=== PATIENT | male | born 1960 | race African-American/Black ===

== ENCOUNTER 2017-03-05 06:26 | Day surgery (SDC) | payer OTHER ==
--- NOTE | 2017-02-26 13:51 | HP ---
DATE OF ADMISSION: DATE OF DICTATION: 01/30/2017 REASON FOR ADMISSION: Right inguinal hernia. BRIEF HISTORY: This is a 56-year-old gentleman who over the past years had a lump in his right groin. Over this time course, the patient states the lump has gotten fairly large and now he has more discomfort in the area. He states the discomfort is exacerbated when he eats large meals. He also feels the lump gets bigger at that time as well. He has no pain with prolonged standing or lifting or bending activities at this time. He has had no nausea, no vomiting, no change in bowel habits. PAST MEDICAL HISTORY: Patient denies coronary disease, hypertension, or diabetes. The patient has a history of arthritic changes and syphilis. PAST SURGICAL HISTORY: He has had arthroscopy of both knees, and surgical management for a crushed left index finger. ALLERGIES: SHELLFISH. SOCIAL HISTORY: Patient smokes one-half pack of cigarettes per day, drinks daily (approximately 4 beers). MEDICATIONS: None. PHYSICAL EXAMINATION: Lungs: Clear. Heart: Regular rhythm. Abdomen: Soft, nontender, nondistended. He has a large right inguinal hernia, which is reducible in the supine position. The right scrotum and testicle is within normal limits. No obvious hernia in the left groin. Some laxity noted. Left scrotum and testicle is within normal limits. IMPRESSION/PLAN: Right groin pain, right inguinal hernia, attenuated left inguinal floor: This is a 56-year-old gentleman who has become more symptomatic over the past year from an enlarging right inguinal hernia. Since it has gotten larger and he is symptomatic, I would recommend we proceed at this time with a repair. We have discussed the various approaches. Patient will be scheduled for a bilateral laparoscopic inguinal repair. At the time of laparoscopy, the left side will be examined due to the laxity, and if a defect is noted, it will be repaired at the same setting. If no defect is noted, a piece of mesh will be left in the direct inguinal space for reinforcement. Due to the generosity and size of the right inguinal hernia, the patient is more likely to develop a postoperative seroma, which may or may not resolve with time. This was explained to the patient. He understands and wants to proceed. JENAE RAZO M.D. [id number] cc: Aidee Mesa MD, [address] [place] [id number],
[2017-03-04 10:11] VITALS: BMI 23.0
[2017-03-05] MEDS ORDERED: TAMSULOSIN HCL 0.4 MG CAP.ER.24H (FP) ONE (07:03)
[2017-03-05] MEDS ORDERED: ceFAZolin SODIUM 1 GM VIAL ONE ×2 (07:03→08:16)
[2017-03-05] MEDS ORDERED: ROCURONIUM BROMIDE 50 MG/5 ML VIAL ONE (07:47)
[2017-03-05] MEDS ORDERED: MIDAZOLAM HCL 2 MG/2 ML SINGLE DOSE VIAL ONE (07:47)
[2017-03-05] MEDS ORDERED: PROPOFOL 20 ML ONE ×2 (07:47)
[2017-03-05] MEDS ORDERED: DEXAMETHASONE SOD PHOSPHATE 4 MG/1 ML VIAL ONE (08:16)
[2017-03-05] MEDS ORDERED: ONDANSETRON 4 MG/2 ML VIAL ONE ×2 (08:16→08:50)
[2017-03-05] MEDS ORDERED: GLYCOPYRROLATE 0.2 MG/1 ML VIAL ONE (08:48)
[2017-03-05] MEDS ORDERED: NEOSTIGMINE METHYLSULFATE 0.5 MG/ML - 10 ML MDV ONE (08:48)
[2017-03-05] MEDS ORDERED: KETOROLAC TROMETHAMINE 30 MG/1 ML VIAL ONE (08:50)
[2017-03-05] MEDS ORDERED: oxyCODONE HCL 5 MG TABLET PO PRN (09:28)
[2017-03-05] MEDS ORDERED: ONDANSETRON 4 MG/2 ML VIAL IVPUSH PRN (09:28)
[2017-03-05] MEDS ORDERED: LACTATED RINGERS SOLUTION 1,000 ML IV SCH (09:30)
[2017-03-05 14:39] VITALS: BP 122/67; PULSE 59; TEMP 97.9
--- NOTE | 2017-03-06 11:53 | OP ---
LUNA CARLSON [id number] DATE OF OPERATION: 03/05/2017 PREOPERATIVE DIAGNOSIS: Right inguinal hernia. POSTOPERATIVE DIAGNOSIS: Right incarcerated pantaloon inguinal hernia, left indirect inguinal hernia. PROCEDURE: Laparoscopic repair of incarcerated right inguinal hernia, laparoscopic repair of left inguinal hernia, all hernia repairs done with mesh. SURGEON: Brando Cresnhaw MD HAND CARVER: Germain Nina MD ANESTHESIA: Britta Chase MD ESTIMATED BLOOD LOSS: Minimal. SPECIMEN: None. DESCRIPTION OF PROCEDURE: This is a 56-year-old gentleman who had a lump in his right groin for many years. The lump has gotten larger. Now, he has got pain in the right groin. On physical examination, he has an obvious large right inguinal hernia and some laxity noted in the left groin. He is here for operative repair. Patient was identified and appropriately positioned on the operating room table. After placement of general anesthesia, the abdomen was prepped and draped in the usual sterile fashion with ChloraPrep. An infraumbilical incision was made deep into the subcutaneous tissues. The fascia of the rectus muscle on the right identified, divided sharply. The muscles split. Under direct vision, the dissector balloon followed by structural balloon was placed. Also, under direct vision, a suprapubic 11-mm port placed. The following structures on the right side identified, pubic tubercle, Coopers ligament, inferior epigastric vessels, spermatic cord, and lateral abdominal wall. During this dissection, he had a direct inguinal hernia containing fat that was incarcerated. This direct component was reduced back into the preperitoneal space with blunt dissection. He had a moderate-sized indirect inguinal hernia. The sac reduced back into the preperitoneal space with blunt dissection. A 4.5 x 6 piece of Versatex mesh was keyhole placed through the suprapubic port site. The mesh wrapped around the cord structures laterally to reconstruct the internal ring. Laterally, the mesh anchored to the anterior abdominal wall and lateral abdominal wall. Medially, the mesh anchored to the anterior abdominal wall, pubic tubercle, and Coopers ligament. The mesh covered the direct space. Upon completion of the right side, similar structures on the left side identified. On the left side, the patient had similar structures identified, and in doing so, he had no direct component. He had an indirect sac with a small cord lipoma, both reduced back in the preperitoneal space. Another 4.5 x 6 piece of Versatex mesh was keyhole placed through the suprapubic port site. The mesh wrapped around the cord structures laterally to reconstruct the internal ring. Laterally, the mesh anchored to the anterior abdominal wall and lateral abdominal wall. Medially, the mesh was well overlapped in the midline, anchored to the anterior abdominal wall, pubic tubercle, and Coopers ligament. The preperitoneal space desufflated under direct vision. The operative field was examined, noted to be hemostatic. The fascia at both port sites were reapproximated with interrupted 0 Vicryl suture. All skin closed with 4-0 subcuticular Biosyn followed by Dermabond. At the conclusion of the case, sponge counts were correct. ATTESTATION: Brief operative note handwritten on the preprinted form. [facility] queried prior to giving any narcotics and will be done electronically. Stephan SUTTON [id number] cc: Dr. Aidee Alford
== END 2017-03-05 11:30 | disposition home or self-care (01) ==
LOC: JASU-SURG 06:26
PROVIDERS: ATTEND Surgery
PROC: 0YUA4JZ Supplement Bilateral Inguinal Region with Synthetic Substitute, Percutaneous Endoscopic Approach (ICD-10-PCS; principal; 2017-03-05 08:00)
DX: K40.30 Unilateral inguinal hernia, with obstruction, without gangrene, not specified as recurrent (principal); K40.90 Unilateral inguinal hernia, without obstruction or gangrene, not specified as recurrent
CPT/HCPCS: 94760

== ENCOUNTER 2024-01-14 10:21 | Inpatient (IN) | payer OTHER ==
[2024-01-14] MEDS ORDERED: PANTOPRAZOLE SODIUM 40 MG VIAL ONE (12:11)
[2024-01-14] MEDS ORDERED: ONDANSETRON 4 MG/2 ML VIAL ONE (12:11)
[2024-01-14] MEDS: LACTATED RINGERS SOLUTION 1,000 ML/1,000 ML INFUS.BAG IV SCH (12:17)
[2024-01-14] MEDS: ONDANSETRON 4 MG/2 ML VIAL IVPUSH ONE (12:17)
[2024-01-14] MEDS: PANTOPRAZOLE SODIUM 40 MG VIAL IVPUSH ONE (12:17)
[2024-01-14 13:55] LABS: BASO % 0.2 % (0-2.0); EOS % 0.1 % (0-4.5); HEMATOCRIT 31.4 % (35.4-49); HEMOGLOBIN 10.2 GM/dL (11.7-16.9); LYMPH % 7.7 % (8-40); MCHC 32.6 g/dl (32.0-35.9); MONO % 4.1 % (3.8-10.2); NEUT % 87.9 % (42.8-82.8); PLATELET COUNT 360 10^3/uL (134-434); RBC 3.65 M/mm3 (4.00-5.60); RDW 15.4 % (11.9-15.9); WHITE BLOOD COUNT 9.2 K/mm3 (4.0-10.0)
[2024-01-14 14:02] LABS: INR 1.03 (0.83-1.09); PROTHROMBIN TIME (PATIENT) 11.9 SEC (9.7-13.0)
[2024-01-14 14:05] LABS: ACTIVATED PTT 24.6 SECONDS (25.2-36.5)
[2024-01-14 14:19] LABS: CHLORIDE 98 mmol/L (98-107); POTASSIUM 3.3 mmol/L (3.5-5.1); SODIUM 136 mmol/L (136-145)
[2024-01-14 14:21] LABS: CALCIUM 8.8 mg/dL (8.5-10.1)
[2024-01-14 14:22] LABS: ALBUMIN 3.4 g/dl (3.4-5.0); ANION GAP 10 mmol/L (4-13); BLOOD UREA NITROGEN 82.5 mg/dL (7-18); CO2 28 mmol/L (21-32); GLUCOSE,RANDOM 98 mg/dL (74-106)
[2024-01-14 14:25] LABS: CREATININE 3.9 mg/dL (0.55-1.3); SGOT/AST 22 U/L (15-37); SGPT/ALT 30 U/L (13-61)
[2024-01-14 14:26] LABS: BILIRUBIN,TOTAL 0.5 mg/dL (0.2-1); TOT PROT 6.4 g/dl (6.4-8.2)
[2024-01-14 14:28] LABS: ALK PHOS 51 U/L (45-117)
[2024-01-14 16:22] LABS: BASO % 0.2 % (0-2.0); EOS % 0.2 % (0-4.5); LYMPH % 11.5 % (8-40); MCH 28.3 pg (25.7-33.7); MCHC 33.2 g/dl (32.0-35.9); MEAN CELL VOLUME 85.3 fl (80-96); MEAN PLT VOLUME 6.6 fl (7.5-11.1); MONO % 6.4 % (3.8-10.2); NEUT % 81.7 % (42.8-82.8); PLATELET COUNT 348 10^3/uL (134-434); RBC 3.88 M/mm3 (4.00-5.60); RDW 15.5 % (11.9-15.9); WHITE BLOOD COUNT 8.5 K/mm3 (4.0-10.0)
[2024-01-14] MEDS ORDERED: TRIMETHOBENZAMIDE HCL 200MG/2ML INJ IM PRN (16:46)
[2024-01-14] MEDS: SODIUM CHLORIDE 1,000 ML IV STA (17:34)
[2024-01-14 17:51] LABS: EPI CELLS 4 /uL (0-25.1); HYALINE CASTS 0 /uL (0-3.1); PH,URINE 5.5 (5.0-8.0); URINE APPEARANCE CLEAR; URINE BACTERIA 2 /uL (0-1359); URINE BILIRUBIN NEGATIVE (NEGATIVE); URINE COLOR YELLOW; URINE GLUCOSE (UA) NEGATIVE (NEGATIVE); URINE KETONE NEGATIVE (NEGATIVE); URINE LEUK ESTERASE NEGATIVE (NEGATIVE); URINE NITRITE NEGATIVE (NEGATIVE); URINE PROTEIN 1+ (NEGATIVE); URINE RBC 37 /uL (0-23.9); URINE UROBILINOGEN 0.2 mg/dL (0.2-1.0); URINE WBC 9 /uL (0-25.8)
[2024-01-14 18:23] LABS: MAGNESIUM 2.3 mg/dL (1.8-2.4)
[2024-01-14 18:26] LABS: CHOLESTEROL 242 mg/dL (50-200)
[2024-01-14 18:28] LABS: LDL CHOLESTEROL (ONLY SJRH) 143 mg/dL (5-100)
[2024-01-14 18:29] LABS: HDL CHOLESTEROL 73 mg/dL (40-60)
[2024-01-14] MEDS: PANTOPRAZOLE SODIUM 40 MG VIAL IVPUSH SCH (23:13)
[2024-01-15] MEDS ORDERED: OCTREOTIDE ACETATE 50 MCG/1 ML - 1 ML VIAL IVPUSH ONE (08:06)
[2024-01-15] MEDS ORDERED: OCTREOTIDE ACETATE 200 MCG, OCTREOTIDE ACETATE 1,000 MCG in DEXTROSE 5%-WATER - 496 ML IVPB SCH (08:15)
[2024-01-15 08:27] LABS: BASO % 1.1 % (0-2.0); EOS % 0.6 % (0-4.5); HEMATOCRIT 32.1 % (35.4-49); LYMPH % 25.2 % (8-40); MCH 28.9 pg (25.7-33.7); MCHC 34.1 g/dl (32.0-35.9); MEAN CELL VOLUME 84.6 fl (80-96); MEAN PLT VOLUME 6.8 fl (7.5-11.1); MONO % 5.9 % (3.8-10.2); NEUT % 67.2 % (42.8-82.8); PLATELET COUNT 386 10^3/uL (134-434); RDW 15.6 % (11.9-15.9); WHITE BLOOD COUNT 4.2 K/mm3 (4.0-10.0)
[2024-01-15 08:28] LABS: POTASSIUM 3.7 mmol/L (3.5-5.1)
[2024-01-15 08:38] LABS: ALBUMIN 3.5 g/dl (3.4-5.0); BLOOD UREA NITROGEN 66.2 mg/dL (7-18); CALCIUM 9.4 mg/dL (8.5-10.1); MAGNESIUM 2.4 mg/dL (1.8-2.4)
[2024-01-15 08:41] LABS: CREATININE 3.3 mg/dL (0.55-1.3); PHOSPHOROUS 3.6 mg/dL (2.5-4.9)
[2024-01-15 08:43] LABS: TOT PROT 6.8 g/dl (6.4-8.2)
[2024-01-15 09:04] LABS: INR 1.03 (0.83-1.09)
[2024-01-15 09:07] LABS: ACTIVATED PTT 25.8 SECONDS (25.2-36.5)
[2024-01-15 11:33] LABS: SYPHILIS W/ RPR CONF NON-REACTIVE (NONREACTIVE)
[2024-01-15 12:01] LABS: HIV INTERPRETATION NEGATIVE (NEGATIVE)
[2024-01-15] MEDS: THIAMINE HCL 200 MG/2 ML VIAL IVPB SCH (12:15)
[2024-01-16] MEDS: LACTATED RINGERS SOLUTION 1,000 ML/1,000 ML INFUS.BAG IV SCH (08:44)
[2024-01-16 10:02] LABS: HEMATOCRIT 35.2 % (35.4-49); HEMOGLOBIN 11.9 GM/dL (11.7-16.9); MCH 28.6 pg (25.7-33.7); MCHC 33.8 g/dl (32.0-35.9); MEAN CELL VOLUME 84.7 fl (80-96); PLATELET COUNT 439 10^3/uL (134-434); RBC 4.16 M/mm3 (4.00-5.60); RDW 15.2 % (11.9-15.9); WHITE BLOOD COUNT 5.4 K/mm3 (4.0-10.0)
[2024-01-16 10:19] LABS: POTASSIUM 3.7 mmol/L (3.5-5.1)
[2024-01-16 10:23] LABS: BLOOD UREA NITROGEN 47.7 mg/dL (7-18)
[2024-01-16 10:24] LABS: CALCIUM 9.9 mg/dL (8.5-10.1)
[2024-01-16 10:25] LABS: ALBUMIN 3.5 g/dl (3.4-5.0); MAGNESIUM 2.2 mg/dL (1.8-2.4)
[2024-01-16 10:27] LABS: CREATININE 2.8 mg/dL (0.55-1.3); PHOSPHOROUS 3.1 mg/dL (2.5-4.9)
[2024-01-16 10:28] LABS: BILIRUBIN,TOTAL 0.7 mg/dL (0.2-1); TOT PROT 7.2 g/dl (6.4-8.2)
[2024-01-16] MEDS ORDERED: DRONABINOL 2.5 MG CAPSULE PO SCH (13:00)
[2024-01-16] MEDS: DRONABINOL 2.5 MG CAPSULE PO ONE (13:50)
[2024-01-16] MEDS: PANTOPRAZOLE 40 MG TABLET PO SCH (21:41)
[2024-01-17] MEDS ORDERED: ONDANSETRON 4 MG/2 ML VIAL IVPUSH PRN (09:16)
[2024-01-17 09:37] LABS: HEMATOCRIT 32.6 % (35.4-49); HEMOGLOBIN 10.6 GM/dL (11.7-16.9); MCHC 32.5 g/dl (32.0-35.9); MEAN CELL VOLUME 86.3 fl (80-96); MEAN PLT VOLUME 6.8 fl (7.5-11.1); PLATELET COUNT 402 10^3/uL (134-434); RBC 3.78 M/mm3 (4.00-5.60); RDW 15.5 % (11.9-15.9); WHITE BLOOD COUNT 6.3 K/mm3 (4.0-10.0)
[2024-01-17] MEDS: LACTATED RINGERS SOLUTION 1,000 ML/1,000 ML INFUS.BAG IV SCH (09:53)
[2024-01-17] MEDS: PANTOPRAZOLE SODIUM 40 MG VIAL IVPUSH SCH (09:54)
[2024-01-17] MEDS: TAMSULOSIN HCL 0.4 MG CAP PO SCH (09:55)
[2024-01-17] MEDS: THIAMINE 100 MG TABLET PO SCH (09:55)
[2024-01-17 09:58] LABS: POTASSIUM 3.4 mmol/L (3.5-5.1)
[2024-01-17] MEDS ORDERED: DRONABINOL 2.5 MG CAPSULE PO SCH (10:00)
[2024-01-17 10:04] LABS: ALBUMIN 3.2 g/dl (3.4-5.0); CALCIUM 9.2 mg/dL (8.5-10.1); MAGNESIUM 1.9 mg/dL (1.8-2.4)
[2024-01-17 10:06] LABS: BLOOD UREA NITROGEN 40.1 mg/dL (7-18); CREATININE 2.7 mg/dL (0.55-1.3)
[2024-01-17 10:08] LABS: PHOSPHOROUS 2.6 mg/dL (2.5-4.9)
[2024-01-17 10:09] LABS: BILIRUBIN,TOTAL 0.5 mg/dL (0.2-1); TOT PROT 6.4 g/dl (6.4-8.2)
[2024-01-17] MEDS ORDERED: PANTOPRAZOLE 40 MG TABLET PO SCH ×2 (13:38→22:00)
[2024-01-18 08:09] LABS: CARCINOEMBRYONIC ANTIGEN 6.2 ng/mL (0.0-4.7)
[2024-01-18 09:08] LABS: HEMATOCRIT 29.3 % (35.4-49); HEMOGLOBIN 9.8 GM/dL (11.7-16.9); MCH 28.4 pg (25.7-33.7); MCHC 33.5 g/dl (32.0-35.9); MEAN CELL VOLUME 84.7 fl (80-96); MEAN PLT VOLUME 6.5 fl (7.5-11.1); PLATELET COUNT 400 10^3/uL (134-434); RBC 3.45 M/mm3 (4.00-5.60); RDW 15.5 % (11.9-15.9); WHITE BLOOD COUNT 4.3 K/mm3 (4.0-10.0)
[2024-01-18 09:31] LABS: POTASSIUM 3.6 mmol/L (3.5-5.1)
[2024-01-18 09:33] LABS: CALCIUM 8.5 mg/dL (8.5-10.1)
[2024-01-18 09:34] LABS: BLOOD UREA NITROGEN 32.7 mg/dL (7-18); MAGNESIUM 1.7 mg/dL (1.8-2.4)
[2024-01-18 09:36] LABS: CREATININE 2.5 mg/dL (0.55-1.3); PHOSPHOROUS 2.6 mg/dL (2.5-4.9)
[2024-01-18 09:38] LABS: BILIRUBIN,TOTAL 0.8 mg/dL (0.2-1); TOT PROT 6.1 g/dl (6.4-8.2)
[2024-01-18] MEDS: TAMSULOSIN HCL 0.4 MG CAP PO SCH (09:56)
[2024-01-18] MEDS: BISACODYL 5 MG TABLET.DR (FP) PO ONE (15:11)
[2024-01-19 07:18] LABS: POTASSIUM 3.5 mmol/L (3.5-5.1)
[2024-01-19 07:22] LABS: BLOOD UREA NITROGEN 27.6 mg/dL (7-18); CALCIUM 8.8 mg/dL (8.5-10.1)
[2024-01-19 07:25] LABS: CREATININE 2.3 mg/dL (0.55-1.3)
[2024-01-20 08:19] LABS: HEMATOCRIT 30.5 % (35.4-49); HEMOGLOBIN 10.4 GM/dL (11.7-16.9); MCH 28.8 pg (25.7-33.7); MCHC 34.1 g/dl (32.0-35.9); MEAN CELL VOLUME 84.4 fl (80-96); MEAN PLT VOLUME 6.6 fl (7.5-11.1); PLATELET COUNT 451 10^3/uL (134-434); RBC 3.62 M/mm3 (4.00-5.60); RDW 15.8 % (11.9-15.9); WHITE BLOOD COUNT 4.9 K/mm3 (4.0-10.0)
[2024-01-20 08:37] LABS: POTASSIUM 3.9 mmol/L (3.5-5.1)
[2024-01-20 08:45] LABS: CALCIUM 9.2 mg/dL (8.5-10.1)
[2024-01-20 08:46] LABS: ALBUMIN 3.1 g/dl (3.4-5.0); BLOOD UREA NITROGEN 26.9 mg/dL (7-18); MAGNESIUM 1.9 mg/dL (1.8-2.4)
[2024-01-20 08:47] LABS: BILIRUBIN,TOTAL 0.5 mg/dL (0.2-1); TOT PROT 6.2 g/dl (6.4-8.2)
[2024-01-20 08:48] LABS: PHOSPHOROUS 2.9 mg/dL (2.5-4.9)
[2024-01-20 08:49] LABS: CREATININE 2.3 mg/dL (0.55-1.3)
[2024-01-20 11:47] VITALS: RESP 18
[2024-01-20] MEDS: LACTATED RINGERS SOLUTION 1,000 ML/1,000 ML INFUS.BAG IV SCH (12:24)
[2024-01-20] MEDS: PANTOPRAZOLE 40 MG TABLET PO SCH (18:13)
[2024-01-21 12:07] LABS: POTASSIUM 3.9 mmol/L (3.5-5.1)
[2024-01-21 12:10] LABS: CALCIUM 8.9 mg/dL (8.5-10.1)
[2024-01-21 12:11] LABS: BLOOD UREA NITROGEN 25.3 mg/dL (7-18)
[2024-01-21 23:52] VITALS: BMI 15.0
[2024-01-22 08:38] LABS: POTASSIUM 4.1 mmol/L (3.5-5.1)
[2024-01-22 08:46] LABS: CALCIUM 9.5 mg/dL (8.5-10.1)
[2024-01-22 08:47] LABS: BLOOD UREA NITROGEN 26.1 mg/dL (7-18)
[2024-01-23 09:00] VITALS: BP 128/95; PULSE 83; TEMP 98.8
== END 2024-01-23 12:10 | disposition home or self-care (01) | DRG 368 ==
LOC: JER 10:21 → INTOOBSV 15:04 → UNDOADMOB 15:04 → JERBED 15:04 → J6S 20:41 → OBSVTOIN 01-16 10:01
PROVIDERS: ADMIT Internal Medicine; ATTEND Internal Medicine
PROC: 0DB68ZX Excision of Stomach, Via Natural or Artificial Opening Endoscopic, Diagnostic (ICD-10-PCS; 2024-01-16)
PROC: 0DB58ZX Excision of Esophagus, Via Natural or Artificial Opening Endoscopic, Diagnostic (ICD-10-PCS; principal; 2024-01-16 09:30)
DX: K20.91 Esophagitis, unspecified with bleeding (principal); K29.71 Gastritis, unspecified, with bleeding; D62 Acute posthemorrhagic anemia; E46 Unspecified protein-calorie malnutrition; Z68.1 Body mass index [BMI] 19.9 or less, adult; N17.9 Acute kidney failure, unspecified; R64 Cachexia; F17.210 Nicotine dependence, cigarettes, uncomplicated; E87.6 Hypokalemia; R62.7 Adult failure to thrive; K76.9 Liver disease, unspecified; K44.9 Diaphragmatic hernia without obstruction or gangrene; F10.10 Alcohol abuse, uncomplicated; F14.10 Cocaine abuse, uncomplicated; N40.0 Benign prostatic hyperplasia without lower urinary tract symptoms; R31.29 Other microscopic hematuria; N18.9 Chronic kidney disease, unspecified
CPT/HCPCS: 0241U-QW; 36415; 71045-TC-FY; 71046-TC-FY; 71250-TC; 74176-TC; 74181-TC; 76775-TC; 76856-TC; 80048; 80053; 80061; 80307; 81003; 82105; 82272; 82378; 82728; 82746; 83540; 83550; 83605; 83690; 83735; 84100; 84300; 84443; 84484; 85025; 85027; 85610; 85730; 86301; 86480; 86704; 86708; 86780; 86803; 86850; 86900; 86901; 87086; 87340; 87389; 87517; 88305-TC; 99285-25; G0378

== ENCOUNTER 2024-03-06 06:11 | Emergency (ER) | payer OTHER ==
[2024-03-06 06:22] VITALS: TEMP 97.5; BMI 17.4
[2024-03-06] MEDS ORDERED: ACETAMINOPHEN INJECTION 100 ML IVPB ONE (07:58)
[2024-03-06] MEDS ORDERED: MAG HYDROX/AL HYDROX/SIMETH 30 ML UNIT-DOSE CUP ONE (07:58)
[2024-03-06] MEDS ORDERED: ONDANSETRON 4 MG/2 ML VIAL ONE (07:59)
[2024-03-06] MEDS: LACTATED RINGERS SOLUTION 1000 ML INFUS.BAG IV ONE (08:00)
[2024-03-06] MEDS: ACETAMINOPHEN 1000 MG/100 ML BAG IVPB ONE (08:01)
[2024-03-06] MEDS: FAMOTIDINE 20 MG/50 ML IVPB 20 MG/50 ML MG IVPB ONE (08:01)
[2024-03-06] MEDS: ONDANSETRON 4 MG/2 ML VIAL IVPUSH ONE (08:01)
[2024-03-06] MEDS: MAG HYDROX/AL HYDROX/SIMETH 30 ML UNIT-DOSE CUP PO ONE (08:01)
[2024-03-06] MEDS ORDERED: FAMOTIDINE 20 MG/50 ML IVPB 20 MG/50 ML MG IVPB ONE (08:02)
[2024-03-06 08:05] LABS: BASO % 1.1 % (0-2.0); EOS % 0.3 % (0-4.5); HEMATOCRIT 37.6 % (35.4-49); HEMOGLOBIN 12.7 GM/dL (11.7-16.9); LYMPH % 14.5 % (8-40); MCHC 33.7 g/dl (32.0-35.9); MEAN PLT VOLUME 6.3 fl (7.5-11.1); MONO % 3.5 % (3.8-10.2); NEUT % 80.6 % (42.8-82.8); PLATELET COUNT 537 10^3/uL (134-434); RBC 4.37 M/mm3 (4.00-5.60); RDW 17.2 % (11.9-15.9); WHITE BLOOD COUNT 6.6 K/mm3 (4.0-10.0)
[2024-03-06 08:13] LABS: INR 0.93 (0.83-1.09); PROTHROMBIN TIME (PATIENT) 10.7 SEC (9.7-13.0)
[2024-03-06 08:16] LABS: ACTIVATED PTT 32.8 SECONDS (25.2-36.5)
[2024-03-06 08:21] LABS: POTASSIUM 4.8 mmol/L (3.5-5.1)
[2024-03-06 08:23] LABS: CALCIUM 9.6 mg/dL (8.5-10.1)
[2024-03-06 08:24] LABS: ALBUMIN 3.9 g/dl (3.4-5.0); BLOOD UREA NITROGEN 23.5 mg/dL (7-18); MAGNESIUM 2.4 mg/dL (1.8-2.4)
[2024-03-06 08:26] LABS: CREATININE 2.2 mg/dL (0.55-1.3)
[2024-03-06 08:28] LABS: BILIRUBIN,TOTAL 0.5 mg/dL (0.2-1); TOT PROT 7.8 g/dl (6.4-8.2)
[2024-03-06 11:07] VITALS: BP 147/88; PULSE 69; RESP 20
== END 2024-03-06 12:15 | disposition home or self-care (01) ==
LOC: JER 06:11
PROC: 3E033GC Introduction of Other Therapeutic Substance into Peripheral Vein, Percutaneous Approach (ICD-10-PCS; principal; 2024-03-06)
PROC: 3E033GC Introduction of Other Therapeutic Substance into Peripheral Vein, Percutaneous Approach (ICD-10-PCS; 2024-03-06)
PROC: 3E033NZ Introduction of Analgesics, Hypnotics, Sedatives into Peripheral Vein, Percutaneous Approach (ICD-10-PCS; 2024-03-06)
DX: R11.2 Nausea with vomiting, unspecified (principal); R10.11 Right upper quadrant pain; R06.2 Wheezing; Z20.822 Contact with and (suspected) exposure to COVID-19
CPT/HCPCS: 0241U-QW; 36415; 71045-TC-FY; 76705-TC; 80053; 80307; 82550; 82553; 83690; 83735; 84484; 85025; 85610; 85730; 93005; 93010; 99285-25; J0131

== ENCOUNTER 2024-03-08 21:49 | Inpatient (IN) | payer OTHER ==
[2024-03-08] MEDS ORDERED: TRIMETHOBENZAMIDE HCL 200MG/2ML INJ IM ONE (23:03)
[2024-03-08] MEDS ORDERED: ACETAMINOPHEN INJECTION 100 ML IVPB ONE (23:03)
[2024-03-08] MEDS ORDERED: FAMOTIDINE 20 MG/50 ML IVPB 20 MG/50 ML MG IVPB ONE (23:04)
[2024-03-08] MEDS: TRIMETHOBENZAMIDE HCL 200MG/2ML INJ IM ONE (23:25)
[2024-03-08] MEDS: SODIUM CHLORIDE 1,000 ML IV STA (23:25)
[2024-03-08] MEDS: ACETAMINOPHEN 1000 MG/100 ML BAG IVPB ONE (23:25)
[2024-03-08] MEDS: FAMOTIDINE 20 MG/50 ML IVPB 20 MG/50 ML MG IVPB ONE (23:25)
[2024-03-08 23:29] LABS: BASO % 0.3 % (0-2.0); HEMATOCRIT 37.8 % (35.4-49); HEMOGLOBIN 12.6 GM/dL (11.7-16.9); LYMPH % 6.8 % (8-40); MCH 28.1 pg (25.7-33.7); MCHC 33.3 g/dl (32.0-35.9); MEAN CELL VOLUME 84.3 fl (80-96); MEAN PLT VOLUME 6.2 fl (7.5-11.1); MONO % 2.6 % (3.8-10.2); NEUT % 90.3 % (42.8-82.8); PLATELET COUNT 458 10^3/uL (134-434); RBC 4.49 M/mm3 (4.00-5.60); RDW 16.7 % (11.9-15.9)
[2024-03-08] MEDS: FAMOTIDINE 20 MG TABLET PO ONE (23:58)
[2024-03-09 00:01] LABS: POTASSIUM 4.6 mmol/L (3.5-5.1)
[2024-03-09 00:03] LABS: CALCIUM 9.6 mg/dL (8.5-10.1)
[2024-03-09 00:04] LABS: BLOOD UREA NITROGEN 26.8 mg/dL (7-18); MAGNESIUM 2.4 mg/dL (1.8-2.4)
[2024-03-09 00:07] LABS: CREATININE 2.8 mg/dL (0.55-1.3)
[2024-03-09 00:08] LABS: BILIRUBIN,TOTAL 0.9 mg/dL (0.2-1); TOT PROT 8.1 g/dl (6.4-8.2)
[2024-03-09] MEDS ORDERED: ONDANSETRON 4 MG/2 ML VIAL IVPUSH PRN (04:52)
[2024-03-09] MEDS ORDERED: ACETAMINOPHEN 1000 MG/100 ML BAG IVPB PRN ×3 (04:53→08:04)
[2024-03-09] MEDS: LACTATED RINGERS SOLUTION 1,000 ML/1,000 ML INFUS.BAG IV SCH (06:07)
[2024-03-09 08:18] LABS: HEMATOCRIT 36.2 % (35.4-49); HEMOGLOBIN 12.1 GM/dL (11.7-16.9); MCH 28.2 pg (25.7-33.7); MCHC 33.3 g/dl (32.0-35.9); MEAN CELL VOLUME 84.6 fl (80-96); MEAN PLT VOLUME 6.4 fl (7.5-11.1); PLATELET COUNT 458 10^3/uL (134-434); RBC 4.28 M/mm3 (4.00-5.60); RDW 17.1 % (11.9-15.9); WHITE BLOOD COUNT 6.8 K/mm3 (4.0-10.0)
[2024-03-09 08:23] LABS: POTASSIUM 4.9 mmol/L (3.5-5.1)
[2024-03-09 08:26] LABS: BLOOD UREA NITROGEN 28.8 mg/dL (7-18); CALCIUM 9.2 mg/dL (8.5-10.1)
[2024-03-09 08:27] LABS: ALBUMIN 3.6 g/dl (3.4-5.0); MAGNESIUM 2.3 mg/dL (1.8-2.4)
[2024-03-09 08:29] LABS: CREATININE 2.6 mg/dL (0.55-1.3); PHOSPHOROUS 4.6 mg/dL (2.5-4.9)
[2024-03-09 08:31] LABS: BILIRUBIN,TOTAL 0.8 mg/dL (0.2-1); TOT PROT 7.2 g/dl (6.4-8.2)
[2024-03-09] MEDS: PANTOPRAZOLE SODIUM 40 MG VIAL IVPUSH SCH (09:43)
[2024-03-09] MEDS: NICOTINE 14 MG/24 HOURS TOPICAL PATCH TD SCH (09:44)
[2024-03-09] MEDS ORDERED: ENOXAPARIN NA (PORCINE) 40 MG/0.4 ML DISP.SYRIN SQ SCH (10:00)
[2024-03-09] MEDS: DEXTROSE 5%-0.45% SALINE 1,000 ML IV SCH (19:43)
[2024-03-09] MEDS: TAMSULOSIN HCL 0.4 MG CAP PO SCH (21:51)
[2024-03-10 08:57] LABS: BASO % 0.8 % (0-2.0); EOS % 0.3 % (0-4.5); HEMOGLOBIN 10.7 GM/dL (11.7-16.9); LYMPH % 17.8 % (8-40); MCH 28.2 pg (25.7-33.7); MCHC 32.6 g/dl (32.0-35.9); MEAN CELL VOLUME 86.5 fl (80-96); MEAN PLT VOLUME 6.6 fl (7.5-11.1); MONO % 5.6 % (3.8-10.2); NEUT % 75.5 % (42.8-82.8); PLATELET COUNT 391 10^3/uL (134-434); RBC 3.82 M/mm3 (4.00-5.60); RDW 16.7 % (11.9-15.9); WHITE BLOOD COUNT 5.2 K/mm3 (4.0-10.0)
[2024-03-10 09:04] LABS: INR 0.94 (0.83-1.09); PROTHROMBIN TIME (PATIENT) 10.8 SEC (9.7-13.0)
[2024-03-10 09:19] LABS: POTASSIUM 4.5 mmol/L (3.5-5.1)
[2024-03-10 09:21] LABS: CALCIUM 9.2 mg/dL (8.5-10.1)
[2024-03-10 09:22] LABS: ALBUMIN 3.4 g/dl (3.4-5.0); BLOOD UREA NITROGEN 35.6 mg/dL (7-18)
[2024-03-10 09:25] LABS: CREATININE 2.5 mg/dL (0.55-1.3)
[2024-03-10 09:27] LABS: BILIRUBIN,TOTAL 0.5 mg/dL (0.2-1); TOT PROT 6.6 g/dl (6.4-8.2)
[2024-03-10] MEDS ORDERED: METOCLOPRAMIDE HCL INJECTION 10 MG/2 ML VIAL IVPUSH SCH (11:00)
[2024-03-10] MEDS: PEG 3350/NA SULF BICARB CL/KCL 4000 ML SOLN.RECON PO ONE (12:24)
[2024-03-10] MEDS: METOCLOPRAMIDE HCL INJECTION 10 MG/2 ML VIAL IVPUSH SCH (12:25)
[2024-03-10] MEDS ORDERED: METOCLOPRAMIDE HCL 10 MG TABLET (FP) PO PRN (13:12)
[2024-03-10] MEDS ORDERED: ACETAMINOPHEN 325 MG TABLET (FP) PO PRN (13:19)
[2024-03-10] MEDS: AMINO ACIDS 4.25%/D5W 1,000 ML IV SCH (14:49)
[2024-03-10] MEDS ORDERED: PEG 3350/NA SULF BICARB CL/KCL 4000 ML SOLN.RECON PO ONE (17:00)
[2024-03-10] MEDS: BISACODYL 5 MG TABLET.DR (FP) PO ONE (17:01)
[2024-03-10 23:10] VITALS: BMI 14.2
[2024-03-11] MEDS: PANTOPRAZOLE 40 MG TABLET PO SCH (10:08)
[2024-03-11 10:37] LABS: BASO % 0.7 % (0-2.0); EOS % 0.3 % (0-4.5); HEMATOCRIT 31.6 % (35.4-49); HEMOGLOBIN 10.5 GM/dL (11.7-16.9); LYMPH % 11.7 % (8-40); MCH 28.1 pg (25.7-33.7); MCHC 33.2 g/dl (32.0-35.9); MEAN CELL VOLUME 84.6 fl (80-96); MEAN PLT VOLUME 6.7 fl (7.5-11.1); NEUT % 82.3 % (42.8-82.8); PLATELET COUNT 360 10^3/uL (134-434); RBC 3.73 M/mm3 (4.00-5.60); RDW 16.9 % (11.9-15.9); WHITE BLOOD COUNT 5.9 K/mm3 (4.0-10.0)
[2024-03-11 10:40] LABS: INR 0.93 (0.83-1.09); PROTHROMBIN TIME (PATIENT) 10.5 SEC (9.7-13.0)
[2024-03-11 10:56] LABS: POTASSIUM 3.8 mmol/L (3.5-5.1)
[2024-03-11 11:06] LABS: CALCIUM 9.4 mg/dL (8.5-10.1)
[2024-03-11 11:07] LABS: ALBUMIN 3.6 g/dl (3.4-5.0); BLOOD UREA NITROGEN 40.4 mg/dL (7-18)
[2024-03-11 11:10] LABS: CREATININE 2.4 mg/dL (0.55-1.3)
[2024-03-11 11:11] LABS: BILIRUBIN,TOTAL 0.9 mg/dL (0.2-1); TOT PROT 6.5 g/dl (6.4-8.2)
[2024-03-12 09:57] LABS: BASO % 1.3 % (0-2.0); EOS % 0.5 % (0-4.5); HEMOGLOBIN 9.7 GM/dL (11.7-16.9); LYMPH % 22.7 % (8-40); MCH 28.6 pg (25.7-33.7); MCHC 33.6 g/dl (32.0-35.9); MEAN CELL VOLUME 85.1 fl (80-96); MEAN PLT VOLUME 6.8 fl (7.5-11.1); MONO % 6.7 % (3.8-10.2); NEUT % 68.8 % (42.8-82.8); PLATELET COUNT 314 10^3/uL (134-434); RDW 16.2 % (11.9-15.9); WHITE BLOOD COUNT 4.3 K/mm3 (4.0-10.0)
[2024-03-12 10:04] LABS: INR 0.96 (0.83-1.09)
[2024-03-12 10:14] LABS: POTASSIUM 3.6 mmol/L (3.5-5.1)
[2024-03-12 10:24] LABS: CREATININE 2.1 mg/dL (0.55-1.3)
[2024-03-12] MEDS ORDERED: ONDANSETRON 4 MG/2 ML VIAL ONE (12:04)
[2024-03-12] MEDS ORDERED: ONDANSETRON 4 MG/2 ML VIAL IVPUSH ONE (12:15)
[2024-03-12] MEDS: TRIMETHOBENZAMIDE HCL 200MG/2ML INJ IM ONE (12:27)
[2024-03-12 12:34] VITALS: RESP 16
[2024-03-12 12:40] VITALS: BP 159/62; PULSE 68; TEMP 20
[2024-03-12] MEDS: AMINO ACIDS 4.25%/D5W 2,000 ML IV SCH (13:18)
[2024-03-12] MEDS ORDERED: PANTOPRAZOLE 40 MG TABLET PO SCH (22:00)
== END 2024-03-12 19:21 | disposition short-term general hospital (02) | DRG 391 ==
LOC: JER 21:49 → JERBED 03-09 04:24 → J5S 03-09 05:03
PROVIDERS: ADMIT Internal Medicine; ATTEND Internal Medicine
PROC: 0DJ08ZZ Inspection of Upper Intestinal Tract, Via Natural or Artificial Opening Endoscopic (ICD-10-PCS; principal; 2024-03-12 11:30)
DX: K22.2 Esophageal obstruction (principal); E43 Unspecified severe protein-calorie malnutrition; N17.9 Acute kidney failure, unspecified; Z68.1 Body mass index [BMI] 19.9 or less, adult; K76.0 Fatty (change of) liver, not elsewhere classified; N40.0 Benign prostatic hyperplasia without lower urinary tract symptoms; N18.9 Chronic kidney disease, unspecified; K44.9 Diaphragmatic hernia without obstruction or gangrene; K21.00 Gastro-esophageal reflux disease with esophagitis, without bleeding; K29.70 Gastritis, unspecified, without bleeding
CPT/HCPCS: 0241U-QW; 36415; 71045-TC-FY; 74220-TC-FY; 74240-TC-FY; 76705-TC; 76775-TC; 80048; 80053; 80307; 82550; 82553; 82962; 83690; 83735; 84100; 84484; 85025; 85027; 85610; 85730; 86850; 86900; 86901; 87635; 88305-TC; 93005; 93010; 99285-25; J0131

== ENCOUNTER 2024-09-08 11:36 | Inpatient (IN) | payer OTHER ==
[2024-09-08] MEDS ORDERED: ACETAMINOPHEN INJECTION 100 ML ONE (14:09)
[2024-09-08] MEDS ORDERED: FAMOTIDINE 20 MG/50 ML IVPB 20 MG/50 ML MG IVPB ONE (14:09)
[2024-09-08] MEDS ORDERED: MAG HYDROX/AL HYDROX/SIMETH 30 ML UNIT-DOSE CUP ONE (14:09)
[2024-09-08] MEDS: MAG HYDROX/AL HYDROX/SIMETH 30 ML UNIT-DOSE CUP PO ONE (14:17)
[2024-09-08] MEDS: ACETAMINOPHEN 1000 MG/100 ML BAG IVPB ONE (14:18)
[2024-09-08] MEDS: FAMOTIDINE 20 MG/50 ML IVPB 20 MG/50 ML MG IVPB ONE (14:18)
[2024-09-08 14:35] LABS: BASO % 0.5 % (0-2.0); HEMATOCRIT 33.2 % (35.4-49); HEMOGLOBIN 10.8 GM/dL (11.7-16.9); LYMPH % 8.2 % (8-40); MCH 27.8 pg (25.7-33.7); MCHC 32.5 g/dl (32.0-35.9); MEAN CELL VOLUME 85.4 fl (80-96); MEAN PLT VOLUME 6.3 fl (7.5-11.1); NEUT % 86.3 % (42.8-82.8); PLATELET COUNT 489 10^3/uL (134-434); RBC 3.89 M/mm3 (4.00-5.60); RDW 16.9 % (11.9-15.9); WHITE BLOOD COUNT 10.5 K/mm3 (4.0-10.0)
[2024-09-08 14:48] LABS: INR 0.87 (0.83-1.09); PROTHROMBIN TIME (PATIENT) 9.9 SEC (9.7-13.0)
[2024-09-08 14:51] LABS: ACTIVATED PTT 28.7 SECONDS (25.2-36.5)
[2024-09-08 14:52] LABS: POTASSIUM 4.8 mmol/L (3.5-5.1)
[2024-09-08 14:54] LABS: ALBUMIN 3.8 g/dl (3.4-5.0); BLOOD UREA NITROGEN 22.7 mg/dL (7-18); CALCIUM 9.8 mg/dL (8.5-10.1)
[2024-09-08 14:57] LABS: CREATININE 1.6 mg/dL (0.55-1.3)
[2024-09-08 14:59] LABS: BILIRUBIN,TOTAL 0.5 mg/dL (0.2-1); TOT PROT 7.9 g/dl (6.4-8.2)
[2024-09-08] MEDS ORDERED: hydrALAZINE HCL 10 MG TABLET ONE (15:45)
[2024-09-08] MEDS ORDERED: PANTOPRAZOLE SODIUM 40 MG VIAL ONE (15:46)
[2024-09-08] MEDS: SODIUM CHLORIDE 0.9% 500 ML INFUS.BAG IV ONE (16:02)
[2024-09-08] MEDS: PANTOPRAZOLE SODIUM 40 MG VIAL IVPUSH ONE (16:02)
[2024-09-08] MEDS: hydrALAZINE HCL 10 MG TABLET PO ONE (16:03)
[2024-09-08 17:20] LABS: EPI CELLS 3 /uL (0-25.1); HYALINE CASTS 0 /uL (0-3.1); URINE APPEARANCE CLEAR; URINE BACTERIA 18 /uL (0-1359); URINE BILIRUBIN NEGATIVE (NEGATIVE); URINE COLOR YELLOW; URINE GLUCOSE (UA) NEGATIVE (NEGATIVE); URINE KETONE NEGATIVE (NEGATIVE); URINE LEUK ESTERASE NEGATIVE (NEGATIVE); URINE NITRITE NEGATIVE (NEGATIVE); URINE PROTEIN 1+ (NEGATIVE); URINE RBC 16 /uL (0-23.9); URINE UROBILINOGEN 0.2 mg/dL (0.2-1.0); URINE WBC 3 /uL (0-25.8)
[2024-09-08] MEDS ORDERED: SODIUM CHLORIDE 1,000 ML IV SCH (21:00)
[2024-09-08] MEDS: PANTOPRAZOLE SODIUM 40 MG VIAL IVPUSH SCH (21:33)
[2024-09-08 22:00] LABS: HEMATOCRIT 29.3 % (35.4-49); HEMOGLOBIN 9.4 GM/dL (11.7-16.9); MEAN CELL VOLUME 84.3 fl (80-96); MEAN PLT VOLUME 6.2 fl (7.5-11.1); PLATELET COUNT 548 10^3/uL (134-434); RBC 3.48 M/mm3 (4.00-5.60); RDW 17.4 % (11.9-15.9); WHITE BLOOD COUNT 11.2 K/mm3 (4.0-10.0)
[2024-09-08] MEDS: SODIUM CHLORIDE 1,000 ML IV SCH (22:06)
[2024-09-09] MEDS ORDERED: ONDANSETRON 4 MG TABLET PO PRN (06:36)
[2024-09-09 09:20] LABS: BASO % 1.1 % (0-2.0); EOS % 0.2 % (0-4.5); HEMATOCRIT 27.3 % (35.4-49); HEMOGLOBIN 9.1 GM/dL (11.7-16.9); LYMPH % 9.9 % (8-40); MCH 28.2 pg (25.7-33.7); MCHC 33.3 g/dl (32.0-35.9); MEAN CELL VOLUME 84.7 fl (80-96); MEAN PLT VOLUME 6.4 fl (7.5-11.1); MONO % 6.4 % (3.8-10.2); NEUT % 82.4 % (42.8-82.8); PLATELET COUNT 483 10^3/uL (134-434); RBC 3.23 M/mm3 (4.00-5.60); RDW 16.5 % (11.9-15.9); WHITE BLOOD COUNT 9.2 K/mm3 (4.0-10.0)
[2024-09-09 09:21] LABS: POTASSIUM 4.9 mmol/L (3.5-5.1)
[2024-09-09 09:34] LABS: BLOOD UREA NITROGEN 28.9 mg/dL (7-18); MAGNESIUM 2.2 mg/dL (1.8-2.4)
[2024-09-09 09:36] LABS: ALBUMIN 2.9 g/dl (3.4-5.0)
[2024-09-09 09:37] LABS: CREATININE 1.8 mg/dL (0.55-1.3); PHOSPHOROUS 3.7 mg/dL (2.5-4.9)
[2024-09-09 09:39] LABS: BILIRUBIN,TOTAL 0.4 mg/dL (0.2-1)
[2024-09-09] MEDS: FAMOTIDINE 20 MG TABLET PO SCH (10:24)
[2024-09-09] MEDS ORDERED: MAG HYDROX/AL HYDROX/SIMETH 30 ML UNIT-DOSE CUP PO PRN (11:52)
[2024-09-09 14:04] LABS: URINE AMPHETAMINES NEGATIVE (NEGATIVE)
[2024-09-09 14:05] LABS: COCAINE, UR POSITIVE (NEGATIVE); OPIATES, URI NEGATIVE (NEGATIVE); URINE BARBITURATES NEGATIVE (NEGATIVE); URINE BENZODIAZEPINES NEGATIVE (NEGATIVE)
[2024-09-09 14:08] LABS: METHADONE, UR NEGATIVE (NEGATIVE); PHENCYCLIDINE,URINE NEGATIVE (NEGATIVE)
[2024-09-09 14:54] VITALS: BMI 17.0
[2024-09-09] MEDS: TAMSULOSIN HCL 0.4 MG CAP PO SCH (21:44)
[2024-09-10 08:35] LABS: BASO % 1.9 % (0-2.0); EOS % 0.2 % (0-4.5); HEMATOCRIT 25.6 % (35.4-49); HEMOGLOBIN 8.5 GM/dL (11.7-16.9); LYMPH % 15.3 % (8-40); MEAN CELL VOLUME 84.7 fl (80-96); MEAN PLT VOLUME 6.4 fl (7.5-11.1); MONO % 5.9 % (3.8-10.2); NEUT % 76.7 % (42.8-82.8); PLATELET COUNT 471 10^3/uL (134-434); RBC 3.03 M/mm3 (4.00-5.60); RDW 16.7 % (11.9-15.9); WHITE BLOOD COUNT 6.4 K/mm3 (4.0-10.0)
[2024-09-10 08:56] LABS: POTASSIUM 4.5 mmol/L (3.5-5.1)
[2024-09-10 08:59] LABS: ALBUMIN 2.8 g/dl (3.4-5.0); CALCIUM 8.9 mg/dL (8.5-10.1); MAGNESIUM 2.3 mg/dL (1.8-2.4)
[2024-09-10 09:00] LABS: BLOOD UREA NITROGEN 33.6 mg/dL (7-18)
[2024-09-10 09:04] LABS: BILIRUBIN,TOTAL 0.3 mg/dL (0.2-1); TOT PROT 5.6 g/dl (6.4-8.2)
[2024-09-11 12:09] LABS: CARCINOEMBRYONIC ANTIGEN 6.1 ng/mL (0.0-4.7)
[2024-09-11 12:57] LABS: BASO % 1.3 % (0-2.0); EOS % 0.4 % (0-4.5); HEMATOCRIT 29.4 % (35.4-49); HEMOGLOBIN 9.5 GM/dL (11.7-16.9); LYMPH % 13.5 % (8-40); MCH 27.7 pg (25.7-33.7); MCHC 32.4 g/dl (32.0-35.9); MEAN CELL VOLUME 85.4 fl (80-96); MEAN PLT VOLUME 6.4 fl (7.5-11.1); MONO % 5.2 % (3.8-10.2); NEUT % 79.6 % (42.8-82.8); PLATELET COUNT 488 10^3/uL (134-434); RBC 3.44 M/mm3 (4.00-5.60); RDW 17.3 % (11.9-15.9); WHITE BLOOD COUNT 5.9 K/mm3 (4.0-10.0)
[2024-09-11 13:11] LABS: POTASSIUM 4.4 mmol/L (3.5-5.1)
[2024-09-11 13:14] LABS: ALBUMIN 3.2 g/dl (3.4-5.0); BLOOD UREA NITROGEN 28.7 mg/dL (7-18); CALCIUM 9.2 mg/dL (8.5-10.1)
[2024-09-11 13:15] LABS: MAGNESIUM 2.2 mg/dL (1.8-2.4)
[2024-09-11 13:17] LABS: CREATININE 2.1 mg/dL (0.55-1.3)
[2024-09-11 13:18] LABS: BILIRUBIN,TOTAL 0.4 mg/dL (0.2-1)
[2024-09-11 13:19] LABS: TOT PROT 6.5 g/dl (6.4-8.2)
[2024-09-11] MEDS: SODIUM CHLORIDE 1,000 ML IV SCH (14:51)
[2024-09-13 09:28] LABS: BASO % 2.3 % (0-2.0); EOS % 1.7 % (0-4.5); HEMATOCRIT 25.9 % (35.4-49); HEMOGLOBIN 8.5 GM/dL (11.7-16.9); LYMPH % 16.3 % (8-40); MCHC 32.9 g/dl (32.0-35.9); MEAN CELL VOLUME 85.2 fl (80-96); MEAN PLT VOLUME 6.3 fl (7.5-11.1); MONO % 6.9 % (3.8-10.2); NEUT % 72.8 % (42.8-82.8); PLATELET COUNT 444 10^3/uL (134-434); RBC 3.04 M/mm3 (4.00-5.60); RDW 16.7 % (11.9-15.9); WHITE BLOOD COUNT 4.7 K/mm3 (4.0-10.0)
[2024-09-13 10:08] LABS: ALBUMIN 2.8 g/dl (3.4-5.0); BLOOD UREA NITROGEN 25.8 mg/dL (7-18); CALCIUM 9.2 mg/dL (8.5-10.1); MAGNESIUM 2.1 mg/dL (1.8-2.4); POTASSIUM 4.8 mmol/L (3.5-5.1)
[2024-09-13 10:15] LABS: BILIRUBIN,TOTAL 0.3 mg/dL (0.2-1); CREATININE 1.8 mg/dL (0.55-1.3); TOT PROT 5.9 g/dl (6.4-8.2)
[2024-09-13] MEDS ORDERED: MIDAZOLAM HCL 2 MG/2 ML SINGLE DOSE VIAL ONE (13:00)
[2024-09-13] MEDS: SUCRALFATE 1 GM/10 ML UNIT DOSE CUPS PO SCH (15:42)
[2024-09-13] MEDS: PANTOPRAZOLE 40 MG TABLET PO SCH (21:15)
[2024-09-13] MEDS: amLODIPine BESYLATE 5 MG TABLET (FP) PO ONE (22:18)
[2024-09-14] MEDS ORDERED: ACETAMINOPHEN 1000 MG/100 ML BAG IVPB PRN (09:42)
[2024-09-14] MEDS: amLODIPine BESYLATE 5 MG TABLET (FP) PO SCH (09:45)
[2024-09-14] MEDS: SODIUM CHLORIDE 1,000 ML IV SCH (11:54)
[2024-09-14 12:45] LABS: BASO % 2.9 % (0-2.0); EOS % 0.9 % (0-4.5); HEMATOCRIT 28.5 % (35.4-49); HEMOGLOBIN 9.2 GM/dL (11.7-16.9); LYMPH % 14.3 % (8-40); MCH 27.6 pg (25.7-33.7); MCHC 32.4 g/dl (32.0-35.9); MEAN CELL VOLUME 85.2 fl (80-96); MEAN PLT VOLUME 6.1 fl (7.5-11.1); MONO % 4.7 % (3.8-10.2); NEUT % 77.2 % (42.8-82.8); PLATELET COUNT 470 10^3/uL (134-434); RBC 3.34 M/mm3 (4.00-5.60); RDW 17.4 % (11.9-15.9)
[2024-09-14 13:15] LABS: POTASSIUM 4.6 mmol/L (3.5-5.1)
[2024-09-14 13:18] LABS: ALBUMIN 3.2 g/dl (3.4-5.0); BLOOD UREA NITROGEN 23.9 mg/dL (7-18); CALCIUM 9.5 mg/dL (8.5-10.1)
[2024-09-14 13:21] LABS: CREATININE 1.9 mg/dL (0.55-1.3)
[2024-09-14 13:23] LABS: BILIRUBIN,TOTAL 0.4 mg/dL (0.2-1); TOT PROT 6.4 g/dl (6.4-8.2)
[2024-09-14] MEDS: LISINOPRIL 5 MG TABLET PO SCH (15:24)
[2024-09-15] MEDS: TRIAMCINOLONE ACET 40MG/1ML VIAL IM ONE (07:51)
[2024-09-15 11:15] LABS: BASO % 2.5 % (0-2.0); HEMATOCRIT 23.8 % (35.4-49); HEMOGLOBIN 7.8 GM/dL (11.7-16.9); LYMPH % 11.5 % (8-40); MCH 27.6 pg (25.7-33.7); MCHC 32.5 g/dl (32.0-35.9); MEAN CELL VOLUME 84.7 fl (80-96); MEAN PLT VOLUME 6.2 fl (7.5-11.1); MONO % 7.9 % (3.8-10.2); NEUT % 76.1 % (42.8-82.8); PLATELET COUNT 409 10^3/uL (134-434); RBC 2.81 M/mm3 (4.00-5.60); RDW 16.9 % (11.9-15.9)
[2024-09-15 11:38] LABS: POTASSIUM 4.1 mmol/L (3.5-5.1)
[2024-09-15 11:43] LABS: CALCIUM 8.7 mg/dL (8.5-10.1)
[2024-09-15 11:44] LABS: ALBUMIN 2.9 g/dl (3.4-5.0); BLOOD UREA NITROGEN 27.3 mg/dL (7-18); MAGNESIUM 1.8 mg/dL (1.8-2.4)
[2024-09-15 11:48] LABS: BILIRUBIN,TOTAL 0.2 mg/dL (0.2-1); TOT PROT 5.8 g/dl (6.4-8.2)
[2024-09-16] MEDS ORDERED: DEXTROSE 50%-WATER 25 GM/50 ML DISP.SYRIN ONE (09:51)
[2024-09-16 10:19] LABS: BASO % 2.2 % (0-2.0); EOS % 2.2 % (0-4.5); HEMATOCRIT 24.8 % (35.4-49); HEMOGLOBIN 7.9 GM/dL (11.7-16.9); LYMPH % 14.9 % (8-40); MCH 27.7 pg (25.7-33.7); MCHC 31.9 g/dl (32.0-35.9); MEAN CELL VOLUME 86.8 fl (80-96); MONO % 7.5 % (3.8-10.2); NEUT % 73.2 % (42.8-82.8); PLATELET COUNT 459 10^3/uL (134-434); RBC 2.86 M/mm3 (4.00-5.60); WHITE BLOOD COUNT 6.3 K/mm3 (4.0-10.0)
[2024-09-16 10:23] LABS: POTASSIUM 4.2 mmol/L (3.5-5.1)
[2024-09-16 10:30] LABS: CALCIUM 8.9 mg/dL (8.5-10.1)
[2024-09-16 10:31] LABS: ALBUMIN 3.2 g/dl (3.4-5.0); BLOOD UREA NITROGEN 38.3 mg/dL (7-18)
[2024-09-16 10:34] LABS: CREATININE 2.2 mg/dL (0.55-1.3)
[2024-09-16 10:35] LABS: BILIRUBIN,TOTAL 0.3 mg/dL (0.2-1); TOT PROT 6.2 g/dl (6.4-8.2)
[2024-09-16 22:28] VITALS: BP 117/86; PULSE 88; RESP 20; TEMP 98.6
== END 2024-09-17 13:50 | disposition home or self-care (01) | DRG 392 ==
LOC: JER 11:36 → OBSVTOIN 18:12 → JERBED 18:12 → J7W 20:34
PROVIDERS: ADMIT Internal Medicine; ATTEND Registered Nurse
PROC: 0DB58ZX Excision of Esophagus, Via Natural or Artificial Opening Endoscopic, Diagnostic (ICD-10-PCS; 2024-09-13)
PROC: 0D758ZZ Dilation of Esophagus, Via Natural or Artificial Opening Endoscopic (ICD-10-PCS; principal; 2024-09-13 12:30)
DX: K22.2 Esophageal obstruction (principal); E46 Unspecified protein-calorie malnutrition; Z68.1 Body mass index [BMI] 19.9 or less, adult; N17.9 Acute kidney failure, unspecified; K92.2 Gastrointestinal hemorrhage, unspecified; K92.0 Hematemesis; Z59.00 Homelessness unspecified; R13.10 Dysphagia, unspecified; K44.9 Diaphragmatic hernia without obstruction or gangrene; F12.99 Cannabis use, unspecified with unspecified cannabis-induced disorder; R16.0 Hepatomegaly, not elsewhere classified; K76.89 Other specified diseases of liver; K30 Functional dyspepsia; F17.210 Nicotine dependence, cigarettes, uncomplicated; N40.0 Benign prostatic hyperplasia without lower urinary tract symptoms; N18.2 Chronic kidney disease, stage 2 (mild); K21.9 Gastro-esophageal reflux disease without esophagitis
CPT/HCPCS: 36415; 71046-TC-FY; 74176-TC; 74220-TC-FY; 80053; 80061; 80307; 81003; 82105; 82272; 82378; 83036; 83605; 83690; 83735; 83880; 84100; 84443; 85025; 85027; 85610; 85730; 86301; 86850; 86900; 86901; 87086; 88305-TC; 93005; 93010; 93306-TC; 97116-GP; 97161-GP; 99285-25; J0131

== ENCOUNTER 2024-10-07 09:42 | Emergency (ER) | payer OTHER ==
[2024-10-07 10:15] VITALS: BP 160/105; PULSE 79; RESP 18; TEMP 97.5; BMI 17.7
[2024-10-07] MEDS ORDERED: ACETAMINOPHEN INJECTION 100 ML ONE (13:43)
[2024-10-07] MEDS ORDERED: FAMOTIDINE 20 MG/50 ML IVPB 20 MG/50 ML MG IVPB ONE (13:44)
[2024-10-07] MEDS: ACETAMINOPHEN 1000 MG/100 ML BAG IVPB ONE (13:44)
[2024-10-07] MEDS: FAMOTIDINE 20 MG/50 ML IVPB 20 MG/50 ML MG IVPB ONE (13:45)
[2024-10-07 13:49] LABS: BASO % 0.6 % (0-2.0); HEMATOCRIT 30.5 % (35.4-49); HEMOGLOBIN 9.5 GM/dL (11.7-16.9); LYMPH % 7.2 % (8-40); MCH 26.5 pg (25.7-33.7); MEAN CELL VOLUME 85.7 fl (80-96); MONO % 2.6 % (3.8-10.2); NEUT % 89.6 % (42.8-82.8); PLATELET COUNT 502 10^3/uL (134-434); RBC 3.56 M/mm3 (4.00-5.60); RDW 16.7 % (11.9-15.9); WHITE BLOOD COUNT 11.8 K/mm3 (4.0-10.0)
[2024-10-07 13:57] LABS: INR 0.87 (0.83-1.09); PROTHROMBIN TIME (PATIENT) 10.1 SEC (9.7-13.0)
[2024-10-07 13:59] LABS: ACTIVATED PTT 29.7 SECONDS (25.2-36.5)
[2024-10-07 14:15] LABS: POTASSIUM 5.6 mmol/L (3.5-5.1)
[2024-10-07 14:18] LABS: CALCIUM 9.3 mg/dL (8.5-10.1)
[2024-10-07 14:19] LABS: ALBUMIN 3.9 g/dl (3.4-5.0)
[2024-10-07 14:21] LABS: CREATININE 1.8 mg/dL (0.55-1.3)
[2024-10-07 14:23] LABS: BILIRUBIN,TOTAL 0.6 mg/dL (0.2-1); TOT PROT 7.5 g/dl (6.4-8.2)
[2024-10-07] MEDS: ONDANSETRON 4 MG/2 ML VIAL IVPUSH ONE (14:59)
[2024-10-07] MEDS ORDERED: ONDANSETRON 4 MG/2 ML VIAL ONE (15:00)
== END 2024-10-07 20:29 | disposition home or self-care (01) ==
LOC: JER 09:42
PROC: 3E033GC Introduction of Other Therapeutic Substance into Peripheral Vein, Percutaneous Approach (ICD-10-PCS; principal; 2024-10-07)
PROC: 3E033NZ Introduction of Analgesics, Hypnotics, Sedatives into Peripheral Vein, Percutaneous Approach (ICD-10-PCS; 2024-10-07)
PROC: 3E033GC Introduction of Other Therapeutic Substance into Peripheral Vein, Percutaneous Approach (ICD-10-PCS; 2024-10-07)
DX: R10.33 Periumbilical pain (principal)
CPT/HCPCS: 36415; 74177-TC; 80053; 83690; 84484; 85025; 85610; 85730; 93005; 93010; 99285-25; J0131